=== PATIENT | male | born 1970 | race Caucasian/White ===

== ENCOUNTER 2018-08-12 06:32 | Emergency (ER) | payer OTHER ==
[2018-08-12 06:44] VITALS: TEMP 98.8
[2018-08-12 07:41] VITALS: BP 162/94; PULSE 102; RESP 20
--- NOTE | 2018-08-12 07:44 | ED ---
General Adult HPI - General Chief complaint: Upper Respiratory Infection Stated complaint: cough Time Seen by Provider: 08/12/18 07:14 Source: patient, RN notes reviewed Mode of arrival: ambulatory Limitations: no limitations - History of Present Illness Initial comments: Patient is a 48-year-old male presented to the emergency room today with a chief complaint of increased cough congestion over the last 5 days. Patient does admit that he did go to urgent care was diagnosed with a sinus infection started on Flonase. States been using cough medication [id number] with little relief the symptoms. Patient states still having dry cough with drainage. She does admit that symptoms started with body aches and chills earlier in the week which have improved. He does admit that he had a sore throat earlier in the week which is also improved. Patient denies any other complaints or symptoms. Patient denies any recent shortness of breath, chest pain, back pain, abdominal pain, nausea or vomiting, numbness or tingling, headaches or visual changes, or any other complaints. - Related Data Home Medications Medication Instructions Recorded Confirmed Chlorpheniramine/Dextromethorp 2 cap PO Q4H PRN 08/12/18 08/12/18 [Coricidin Hbp Cough & Cold Tab] Fluticasone Nasal [place] [Flonase 2 spr EA NOSTRIL DAILY PRN 08/12/18 08/12/18 Nasal [place]] Mylanta/Benadryl 5 ml PO Q3H 08/12/18 08/12/18 Natural Honey 15 ml PO Q2H PRN 08/12/18 08/12/18 Previous Rx's Medication Instructions Recorded Amoxicillin/Potassium Clav 1 each PO Q12HR #20 tab 08/12/18 [Augmentin 875-125 Tablet] Allergies Allergy/AdvReac Type Severity Reaction Status Date / Time Penicillins Allergy Unknown Verified 08/12/18 07:07 Childhood Review of Systems ROS Statement: Those systems with pertinent positive or pertinent negative responses have been documented in the HPI. ROS Other: All systems not noted in ROS Statement are negative. Past Medical History Additional Past Medical History / Comment(s): pulmonary stenosis History of Any Multi-Drug Resistant Organisms: None Reported Past Surgical History: Orthopedic Surgery Past Psychological History: Anxiety, Depression Smoking Status: Never smoker Past Alcohol Use History: None Reported Past Drug Use History: None Reported General Exam - General Exam Comments Initial Comments: General: The patient is awake and alert, in no distress, and does not appear acutely ill. Eye: There is normal conjunctiva bilaterally. No signs of icterus. Ears, nose, mouth and throat: There are moist mucous membranes and no oral lesions. Neck: The neck is supple, there is no tenderness or JVD. Cardiovascular: There is a regular rate and rhythm. No murmur, rub or gallop is appreciated. Respiratory: Lungs are clear to auscultation, respirations are non-labored, breath sounds are equal. No wheezes, stridor, rales, or rhonchi. Musculoskeletal: Normal ROM, no tenderness. Neurological: A&O x 3. CN II-XII intact, There are no obvious motor or sensory deficits. Coordination appears grossly intact. Speech is normal. Skin: Skin is warm and dry and no rashes or lesions are noted. Psychiatric: Cooperative, appropriate mood & affect, normal judgment. Limitations: no limitations Course Vital Signs 08/12/18 08/12/18 06:36 06:55 Temperature 98.8 F Pulse Rate 103 H Respiratory 20 21 Rate Blood Pressure 185/106 O2 Sat by Pulse 98 Oximetry Medical Decision Making - Medical Decision Making Patient examined here in the emergency room shows no signs of distress. Patient does admit to cough congestion over the past week. Does admit that he had body aches chills earlier in the week which have improved along with sore throat. Still expressing cough and congestion. Was discussed most likely a viral illness. Lung sounds are clear. Patient will be given an antibiotic to go home with. He states he's had amoxicillin in the past. Patient advised to hold antibiotics over the next 2 days to see if symptoms are improving. Advised that if symptoms increase or worsen may begin antibiotic and follow-up family doctor. Return if any symptoms increase worsen. Disposition Clinical Impression: URI (upper respiratory infection) Disposition: HOME SELF-CARE Condition: Good Instructions: Upper Respiratory Infection (ED) Additional Instructions: Please use medication as discussed. Please follow-up with family doctor in the next 2 days of symptoms have not improved. Please return to emergency room if the symptoms increase or worsen or for any other concerns. Prescriptions: Amoxicillin/Potassium Clav [Augmentin 875-125 Tablet] 1 each PO Q12HR #20 tab Is patient prescribed a controlled substance at d/c from ED?: No Referrals: Larry Mejias MD [Primary Care Provider] - 1-2 days Time of Disposition: 07:43
== END 2018-08-12 07:58 | disposition home or self-care (01) ==
LOC: EC 06:32
DX: J06.9 Acute upper respiratory infection, unspecified (principal); Q25.6 Stenosis of pulmonary artery; Z88.0 Allergy status to penicillin; Z79.899 Other long term (current) drug therapy
CPT/HCPCS: 99283